=== PATIENT | male | born 2000 | race Hispanic/Latino ===

== ENCOUNTER 2022-02-24 18:33 | Emergency (ER) | payer SELFPAY ==
[2022-02-24 19:19] LABS: Urine Blood Negative (Negative); Urine Glucose Negative (Negative); Urine Protein Trace (Negative); Urine Specific Gravity >=1.030 (1.005-1.030); Urine pH 5.5 (5.0-7.0)
[2022-02-24 19:37] LABS: Barbiturates NEGATIVE (NEGATIVE); Benzodiazepines NEGATIVE (NEGATIVE); Cocaine NEGATIVE (NEGATIVE); METHAMPHETAM NEGATIVE (NEGATIVE); Methadone NEGATIVE (NEGATIVE); Opiates NEGATIVE (NEGATIVE); Phencyclidine NEGATIVE (NEGATIVE); THC Cannibis POSITIVE (NEGATIVE)
[2022-02-24] MEDS ORDERED: NA CHLORIDE 0.9% 1,000 ML ONE (19:51)
[2022-02-24 20:17] LABS: Absolute Lymphocytes (CBC) 0.8 K/uL (0.7-4.9); Hematocrit 44.6 % (39.6-49.0); Lymphocytes % 10.1 % (15.3-44.8); MPV 8.7 fL (7.6-11.3); RBC Red Blood Cell Count 5.18 M/uL (4.33-5.43)
[2022-02-24 20:20] LABS: Protime INR 1.17
[2022-02-24 20:37] LABS: Albumin 4.7 g/dL (3.4-5.0); Bilirubin Direct 0.2 mg/dL (0-0.2); Bilirubin Total 0.6 mg/dL (0.2-1.0); Potassium 3.7 mmol/L (3.5-5.1); Protein, Total 8.1 g/dL (6.4-8.2)
--- NOTE | 2022-02-24 21:20 | EDPHYS ---
Physician Documentation [facility] Name: Mj Campos Age: 22 yrs Sex: Male : 2000 Arrival Date: 02/24/2022 Time: 18:38 Bed 19 Private MD: ED Physician Darwin Roa HPI: 02/24 21:16 This 22 yrs old Male presents to ER via Ambulatory with complaints of kb Toothache, ingestion pain meds. 21:17 The patient presents to the emergency department after a known overdose, that was kb intentional, for pain management only. Context: Method: the patient has a confirmed or suspected ingestion, of acetaminophen, NSAIDS, Time: at 16:00, Extent: the OD/poisoning occurred at at home, Psychiatric history: none. Associated signs and symptoms: The patient has no apparent associated signs or symptoms. Severity of symptoms: At their worst the symptoms were mild moderate in the emergency department the symptoms are unchanged. The patient has not experienced similar symptoms in the past. The patient has not recently seen a physician. Pt reports he has had a toothache for 3 weeks. States he took 4 tylenol, 4 excedrine and 7 motrin in a two hour time around 1600. States he was not trying to harm himself, but is now concerned that he took too much medication.. Historical: - Allergies: 18:49 No Known Allergies; hb - Home Meds: 18:49 None [Active]; hb - PMHx: 18:49 None; hb - PSHx: 18:49 None; hb - Immunization history:: Adult Immunizations up to date. - Social history:: Smoking status: Patient denies any tobacco usage or history of. ROS: 19:29 Constitutional: Negative for fever, chills, and weight loss. kb 19:29 All other systems are negative. Exam: 19:29 Constitutional: This is a well developed, well nourished patient who is awake, alert, kb and in no acute distress. Head/Face: Normocephalic, atraumatic. ENT: Moist Mucous membranes Cardiovascular: Regular rate and rhythm with a normal S1 and S2. No gallops, murmurs, or rubs. No pulse deficits. Respiratory: Respirations even and unlabored. No increased work of breathing. Talking in full sentences Abdomen/GI: Soft, non-tender. No distention Skin: Warm, dry with normal turgor. Normal color. MS/ Extremity: Pulses equal, no cyanosis. Neurovascular intact. Full, normal range of motion. Neuro: Awake and alert, GCS 15, oriented to person, place, time, and situation. Moves all extremities. Normal gait. Psych: Awake, alert, with orientation to person, place and time. Behavior, mood, and affect are within normal limits. 19:29 ECG was reviewed by the Attending Physician. 21:23 ENT: Dental exam: pain, that is moderate, specifically in the lower right third molar kb (#32). Vital Signs: 18:46 BP 142 / 88; Pulse 89; Resp 16; Temp 97.8(TE); Pulse Ox 99% on R/A; hb 19:17 BP 128 / 76; Pulse 92; Resp 15; Pulse Ox 100% on R/A; Pain 0/10; ja4 21:34 BP 116 / 84; Pulse 79; Resp 17; Pulse Ox 100% on R/A; ja4 MDM: 18:49 Patient medically screened. kb 20:27 Data reviewed: vital signs, nurses notes. Data interpreted: Pulse oximetry: on room air kb is 100 %. Interpretation: normal. 21:14 Counseling: I had a detailed discussion with the patient and/or guardian regarding: the kb historical points, exam findings, and any diagnostic results supporting the discharge/admit diagnosis, lab results, the need for outpatient follow up, a family practitioner, to return to the emergency department if symptoms worsen or persist or if there are any questions or concerns that arise at home. 02/24 18:50 Order name: Acetaminophen; Complete Time: 20:38 kb 02/24 18:50 Order name: Basic Metabolic Panel; Complete Time: 20:38 kb 02/24 18:50 Order name: CBC with Diff; Complete Time: 20:22 kb 02/24 18:50 Order name: ETOH Level; Complete Time: 20:31 kb 02/24 18:50 Order name: Hepatic Function; Complete Time: 20:38 kb 18 18:50 Order name: PT-INR; Complete Time: 20:22 kb 18 18:50 Order name: Ptt, Activated; Complete Time: 20:22 kb 02/24 18:50 Order name: Salicylate; Complete Time: 20:30 kb 09/18 18:50 Order name: Urine Drug Screen kb 02/24 18:50 Order name: EKG; Complete Time: 18:51 kb 02/24 18:50 Order name: EKG - Nurse/Tech; Complete Time: 19:30 kb 02/24 19:19 Order name: Urine Dipstick-Ancillary; Complete Time: 19:21 EDMS 02/24 19:38 Order name: Urine Drug Screen EDVT 02/24 18:50 Order name: IV Saline Lock 02/24 18:50 Order name: Labs collected and sent kb 02/24 18:50 Order name: Suicide Screening ([place]) kb 02/24 18:50 Order name: Urine Dipstick-Ancillary (obtain specimen); Complete Time: 19:20 kb 02/24 18:50 Order name: Misc. Order: call poison control for recommendation kb EC:29 Rate is 77 beats/min. Rhythm is regular. QRS [place] is Normal. VA interval is normal at kb 148 msec. QRS interval is normal at 88 msec. QT interval is normal at 411 msec. Administered Medications: 20:01 Drug: NS 0.9% 1000 ml Route: IV; Rate: 1000 ml; Site: right antecubital; ja4 Disposition Summary: 02/24/22 21:20 Discharge Ordered Location: Home kb Condition: Stable kb Diagnosis - Poisoning by other drugs, medicaments and biological substances, accidental kb (unintentional) Followup: kb - With: Emergency Department - When: As needed - Reason: Worsening of condition Followup: kb - With: Private Physician - When: 2 - 3 days - Reason: Recheck today's complaints, Continuance of care, Re-evaluation by your physician Discharge Instructions: - Discharge Summary Sheet kb - Acetaminophen Overdose kb Forms: - Medication Reconciliation Form kb - Thank You Letter kb - Antibiotic Education kb - Prescription Opioid Use kb Addendum: 02/26/2022 03:31 Co-signature as Attending Physician, Darwin Roa DO I was immediately available onsite m s3 in the emergency department for consultation in the care of the patient. Signatures: Dispatcher [employer] EDTreva Beltran FNP-C FNP-Angelic Patel RN Darwin Mercado DO DO ms3 Liang Queen RN RN ja4
--- NOTE | 2022-02-24 21:20 | ER ---
Nurse's Notes [facility] Name: Mj Campos Age: 22 yrs Sex: Male : 2000 Arrival Date: 02/24/2022 Time: 18:38 Bed 19 Private MD: Diagnosis: Poisoning by other drugs, medicaments and biological substances, accidental (unintentional) Presentation: 02/24 18:46 Chief complaint: Patient states: :I took too many pain relieving meds for my hb toothache." Pt took Excedrin x 4, Tylenol ES x 4, Motrin x 7.2 hours ago. Coronavirus screen: At this time, the client does not indicate any symptoms associated with coronavirus-19. Ebola Screen: No symptoms or risks identified at this time. Initial Sepsis Screen: Does the patient meet any 2 criteria? No. Patient's initial sepsis screen is negative. Does the patient have a suspected source of infection? No. Patient's initial sepsis screen is negative. Risk Assessment: Do you want to hurt yourself or someone else?. Onset of symptoms was February 24, 2022. 18:46 Method Of Arrival: Ambulatory hb 18:46 Acuity: VICKIE 2 hb Historical: - Allergies: 18:49 No Known Allergies; hb - Home Meds: 18:49 None [Active]; hb - PMHx: 18:49 None; hb - PSHx: 18:49 None; hb - Immunization history:: Adult Immunizations up to date. - Social history:: Smoking status: Patient denies any tobacco usage or history of. Screenin:17 Abuse screen: Denies threats or abuse. Nutritional screening: No deficits noted. ja4 Tuberculosis screening: No symptoms or risk factors identified. Fall Risk None identified. Assessment: 19:16 Reassessment: contacted Poison Control, recommends to do a four hour tylenol and iw aspirin level and if those are negative and pt is asymptomatic can dispo home. 19:17 General: Appears in no apparent distress. Pain: Denies pain. Neuro: No deficits noted. ja4 Cardiovascular: No deficits noted. Respiratory: No deficits noted. EENT: No deficits noted. Vital Signs: 18:46 BP 142 / 88; Pulse 89; Resp 16; Temp 97.8(TE); Pulse Ox 99% on R/A; hb 19:17 BP 128 / 76; Pulse 92; Resp 15; Pulse Ox 100% on R/A; Pain 0/10; ja4 21:34 BP 116 / 84; Pulse 79; Resp 17; Pulse Ox 100% on R/A; ja4 ED Course: 18:38 Patient arrived in ED. as 18:42 Tre[facility] Moreno FNP-C [facility] kb 18:42 Darwin Roa DO is Attending Physician. kb 18:49 Triage completed. hb 18:49 Arm band placed on left wrist. hb 19:09 Liang Queen, RN is Primary Nurse. ja4 19:17 Patient has correct armband on for positive identification. Bed in low position. Call ja4 light in reach. Client placed on continuous cardiac and pulse oximetry monitoring. NIBP monitoring applied. 19:17 No provider procedures requiring assistance completed. [facility] 19:20 Urine Drug Screen Sent. [facility] 19:30 EKG done, by ED staff, reviewed by Treva PIÑA. [facility] 19:31 Warm blanket given. ends down checker on. Pulse ox on. NIBP on. [facility] 20:01 Inserted saline lock: 20 gauge in right antecubital area, using aseptic technique. ja4 Blood collected. 21:34 IV discontinued, intact, bleeding controlled, No redness/swelling at site. Pressure 4 dressing applied. Administered Medications: 20:01 Drug: NS 0.9% 1000 ml Route: IV; Rate: 1000 ml; Site: right antecubital; 4 Medication: 19:17 VIS not applicable for this client. 4 Outcome: 21:20 Discharge ordered by . ariella 21:34 Discharged to home ambulatory. 4 21:34 Condition: good 21:34 Discharge instructions given to patient, Instructed on discharge instructions, follow up and referral plans. medication usage, Demonstrated understanding of instructions, follow-up care, medications. 21:36 Patient left the ED. ja Signatures: Treva Moreno FNP-C FNP-Ckb Martinez, Amelia as Williams, Irene, Angelic Edwards RN, RN RN hb Martinez, Maria Liang English RN RN [facility]
[2022-02-26 06:57] VITALS: TEMP 97.8
[2022-02-26 07:04] VITALS: BP 128/76; O2SAT 100
--- NOTE | 2022-02-27 06:40 | EKG ---
Test Date: 2022-02-24 Test Time: 19:30:01 Money Counter: [facility] MEASUREMENT RESULTS: Intervals: Rate: 77 WI: 148 QRSD: 88 QT: 364 QTc: 411 [place]: P: 40 WI: 148 QRS: 72 T: 59 INTERPRETIVE STATEMENTS: Normal sinus rhythm with sinus arrhythmia Normal ECG No previous ECG available for comparison Electronically Signed On 02-27-22 06:32:30 CDT by Cullen Cade
== END 2022-02-24 21:36 | disposition home or self-care (01) ==
LOC: ER 18:33
DX: T50.991A Poisoning by other drugs, medicaments and biological substances, accidental (unintentional), initial encounter (principal); K08.89 Other specified disorders of teeth and supporting structures
CPT/HCPCS: 36415; 80048; 80076; 80307; 80320; 80329; 81003; 85025; 85610; 85730; 93005; 99284; J7030